=== PATIENT | male | born 1995 | race Two or more races ===

== ENCOUNTER 2022-03-03 11:09 | Emergency (ER) | payer OTHER ==
[~2022-03-03] VITALS: Ht 177.8 cm; Wt 74.8 kg
== END 2022-03-03 15:13 | disposition home or self-care (01) ==
LOC: ER 11:09
DX: B34.0 Adenovirus infection, unspecified (principal); Z20.822 Contact with and (suspected) exposure to COVID-19; Z91.013 Allergy to seafood